=== PATIENT | female | born 2000 | race Caucasian/White ===

== ENCOUNTER 2020-04-14 06:00 | Day surgery (SDC) | payer OTHER | END 2020-04-14 17:30 | disposition home or self-care (01) | LOC: CIR.AMB 06:00 | DX: N62 Hypertrophy of breast (principal) ==

== ENCOUNTER 2020-04-14 19:37 | Inpatient (IN) | payer OTHER | END 2020-04-15 13:14 | disposition home or self-care (01) | DRG 601 | LOC: O/R 19:37 → SURG-SUITE 22:12 | PROVIDERS: ADMIT Plastic Surgery | PROC: 0J9600Z Drainage of Chest Subcutaneous Tissue and Fascia with Drainage Device, Open Approach (ICD-10-PCS; principal; 2020-04-14 20:00) | DX: N62 Hypertrophy of breast (principal); N64.89 Other specified disorders of breast ==